=== PATIENT | female | born 1955 | race Caucasian/White ===

== ENCOUNTER 2019-09-21 11:00 | Outpatient (RCR) | payer OTHER, SELFPAY ==
--- NOTE | 2019-08-18 10:44 | PTOPEVAL ---
PHYSICAL THERAPY EVALUATION AND PLAN OF CARE 08-18-2019 The PT evaluation was completed for low back pain. Her plan of treatment is scheduled for 1x/wk for 5 weeks. Thank you for referring Crissy Conroy to [facility]. Please review, sign, date and return this plan of care [facility]. I agree with and certify that the following plan of care is medically necessary. Referring Physician Date Attending Provider: Lela Christian NP *PT Outpatient Evaluation Start: 08/18/19 09:43 Document 08/18/19 09:40 ALEN (Rec: 08/18/19 10:44 ALEN [id number]) Outpatient Past Medical History Past Medical History Source of Past Medical History Patient Neurological History Hx Neurological Disorders No Significant History Cardiovascular History Hx Hypertension Yes: meds Respiratory History Hx Sleep Apnea Yes: dental appliance Gastrointestinal History Hx Gastrointestinal Disorders No Significant History Musculoskeletal History Hx Arthritis Yes: hips Hx Back Injury Yes: after child ,back labor with back pain Hx Other Musculoskeletal Disorders Yes: B knee pain, obesity- recent wt gain 80#/yr Endocrine History Hx Endocrine Disorders No Significant History HEENT History Hx HEENT Disorders No Significant History Evaluation Information Problem Diagnosis lumbago with L sciatica Onset Jan 2019 Subjective Information lifting boxes and twisted back Query Text:As Reported By Patient/ - instant pain; saw Family chiropractor-adjustment and better, then hurt back again; to medical dr and had xrays; pt reports she had lost 80#, then in the past year has regained it all back; previously did aquatic exercises at [facility], not doing due to pandemic Diagnostic Tests X-Rays For This Problem Yes: per pt-minor arthritis back Prior Level of Function Activity Level (Last 3 Months) Occupation retired; Hand Dominance Right Activity of Daily Living Ability Independent Indoor/Home Mobility Independent Community Mobility Independent Stairs Ability Independent Functional Cognition (Planning, Shopping Independent , Taking Medications) Cooking Yes Cleaning Yes Laundry Yes Shopping Yes Driving Yes Home Setting Home Type House Mobi
--- NOTE | 2019-09-21 11:51 | PTOPEVAL ---
PHYSICAL THERAPY DISCHARGE 09-21-2019 Mrs. Conroy has received 6 PT sessions, from August 17 to today for the diagnosis of back pain. She has improved in all areas-trunk and hip strength, increased activity- returned to doing all her usual home activities, supine/sit/stand without pain; Oswestry self assessment score, flexibility of piriformis and has a good understanding of back posture and body mechanics. And is independent with her home exercises. All of the goals were achieved. Therefore, she will be discharged at this time. stephanie you for referring Crissy Conroy to [facility]. Please review, sign, date and return this discharge [facility]. I agree with and certify that the following plan of care is medically necessary. Referring Physician Date Attending Provider: Lela Christian NP *PT Outpatient Discharge Document 09/21/19 11:10 ALEN (Rec: 09/21/19 11:51 ALEN [id number]) Subjective Information Crissy reports: back is better; Query Text:As Reported By Patient/ feeling better, resumed doing Family home cleaning and closet cleaning; am doing weed eater in yard, grocery shopping; am careful with how I move- getting up out of bed is slower and more cautious, does not hurt; does not have any problems with her home exercises and watches her posture; Oswestry self assessment 14% limitation; Pain Assessment Timing of Pain Assessment Timing of Pain Assessment Assessment Pain Scale Pain Scale Used Numeric (1 - 10) Self Report Pain Assessment Bilateral Back Reported Pain Level 0 Pain Frequency Acute Other Pain Description tenderness over R ant illiac crest/ no pain on L side Pain Score Pain Score 0: Self Report Lower Extremity Range of Motion General Lower Extremity Range of Motion Gross Lower Extremity Range of Motion supine: piriformis stretch R Comments same flexibility as L; prone knee flexion stretch R 110'/L 120'; issued HEP for prone knee flexion stretch; Lower Extremity Muscle Strength Testing General Lower Extremity Strength Gross Lower Extremity Strength supine: bridge 20 reps; side lying hip abduction and clamshells R and L with green theraband: 20 reps each - sit to stand and supine to sit, without an increase in pain and good technque -Issued gree
== END 2019-09-22 11:33 | disposition home or self-care (01) ==
LOC: ANHPT 11:00
PROVIDERS: Visit Provider Nurse Practitioner
DX: M54.42 Lumbago with sciatica, left side (principal)
CPT/HCPCS: 97110; 97140; 97161

== ENCOUNTER 2021-11-07 01:09 | Day surgery (SDC) | payer MEDICARE, SELFPAY ==
[2021-10-23 16:05] VITALS: BMI 40.3
--- NOTE | 2021-11-06 10:18 | WPDANESEPPF ---
Anes - Initial Pre Proc Eval Procedure: Operation Date: 11/07/21 08:00 Proposed Procedures p Screening Colonoscopy - Jg Espinal MD Date/Time: 11/06/21 10:18 Surgeon: Jg Espinal MD Pre Op Diagnosis: neoplasm screening Patient Data Age: 66 Gender: F Height: 1.57 m Weight: 100 kg Allergies Allergy/AdvReac Type Severity Reaction Status Date / Time meperidine Allergy Unknown Unknown Verified 11/07/21 06:40 Home Medications Medication Instructions Recorded Confirmed Type aspirin 81 mg tablet,delayed 81 mg PO DAILY 04/14/19 11/07/21 History release calcium carb-Ca gluc 500 mg 1 tablet PO DAILY 04/14/19 11/07/21 History calcium-magnesium ox-Mg gluc 250 mg tablet (Calcium Magnesium) [id number]-Ef-lmad-minerals 1 tablet PO DAILY 04/14/19 11/07/21 History (Multiple Vitamin, Womens tablet) acetaminophen 325 mg capsule 325 mg PO Q6H PRN Pain 10/25/20 11/07/21 History (Tylenol) cholecalciferol (vitamin D3) 50 50 mcg PO DAILY 10/25/20 11/07/21 History mcg (2,000 unit) capsule hydrochlorothiazide 12.5 mg tablet 12.5 mg PO DAILY #90 tabs 04/11/21 11/07/21 Rx losartan 50 mg tablet 50 mg PO DAILY #90 tabs 07/09/21 11/07/21 Rx carvedilol 6.25 mg tablet 6.25 mg PO Q12H #180 tabs 09/20/21 11/07/21 Rx Patient hx anesthesia problems: none Family hx anesthesia problems: none Results Review: All pre-operative results and documents have been reviewed as part of the pre-operative evaluation. [facility] Past Medical History Medical History Breast cancer screening Dyslipidemia Essential (primary) hypertension Sleep apnea Wears dental appliance Vitamin D deficiency Surgical History Surgical History H/O dilation and curettage (~1999) Family History Family History (Updated 10/02/21 @ 09:09 by Monique Rojas) Mother Family history of lung cancer Hypertension Father Heart disease Sibling Asthma Other Family history of arthritis Family history of malignant neoplasm of brain Social History Social History (Updated 10/02/21 @ 09:09 by Monique Rojas) Social History: lives with and has 2 adult children-3 grandchildren. Years smoked: 3 Smoking status: Former smoker Tobacco type: cigarettes Alcohol intake: current Alcohol use details: 1 drink every other month Substance use: never Substance use type: does not use Living arrangements: with family Additional occupation/education comments: Retired from [employer]. Works PT at a [employer]. Gender identity (if verbalized by the patient): Female Sexual Orientation (if Verbalized by the Patient): Straight or Heterosexual Spiritual care concerns: No Agree to blood products: Yes Anes - Eval Final PreProcedure Day of Procedure 11/06/21 10:18 Patient weight: morbidly obese Heart: regular rate and rhythm Lungs: clear to auscultation Airway: Mallampati scale class II Neurological: alert and oriented Last oral intake: >/= 8 hours ASA classification: III Emergent: no Anesthetic plan: proceed Anesthesia type and monitoring: general GIVS and standard monitoring Results Review: All pre-operative results and documents have been reviewed as part of the pre-operative evaluation. Informed Consent: The patient's anesthetic plan and its attendant risks and benefits were discussed with the patient/family/POA. Questions were solicited and answers provided to the satisfaction of the patient/family/POA.
[2021-11-07 06:44] VITALS: BP 146/78; PULSE 64; RESP 18; TEMP 37; O2SAT 98
[2021-11-07] MEDS: LACTATED RINGERS 1,000 ML 150 ML IV CONT (06:47)
--- NOTE | 2021-11-07 07:54 | PM.IMHP ---
H&P: HPI History of Present Illness Date/Time: 11/07/21 07:54 Chief Complaint: Neoplasia screening. Narrative: This is a 66-year-old white female patient presents for screening colonoscopy. Patient's current weight appetite and bowel movements are normal. She denies abdominal pain. Patient has had no bleeding. Family history is noncontributory. Review of Systems Review of Systems: Review of systems noncontributory. [facility] Past Medical History Medical History Breast cancer screening Dyslipidemia Essential (primary) hypertension Sleep apnea Wears dental appliance Vitamin D deficiency Surgical History Surgical History H/O dilation and curettage (~1999) Family History Family History (Updated 10/02/21 @ 09:09 by Monique Rojas) Mother Family history of lung cancer Hypertension Father Heart disease Sibling Asthma Other Family history of arthritis Family history of malignant neoplasm of brain Social History Social History (Updated 10/02/21 @ 09:09 by Monique Rojas) Social History: lives with and has 2 adult children-3 grandchildren. Years smoked: 3 Smoking status: Former smoker Tobacco type: cigarettes Alcohol intake: current Alcohol use details: 1 drink every other month Substance use: never Substance use type: does not use Living arrangements: with family Additional occupation/education comments: Retired from [employer]. Works PT at a [employer] office. Gender identity (if verbalized by the patient): Female Sexual Orientation (if Verbalized by the Patient): Straight or Heterosexual Spiritual care concerns: No Agree to blood products: Yes Meds Home Medications and Allergies Home Medications Medication Instructions Recorded Confirmed Type aspirin 81 mg tablet,delayed 81 mg PO DAILY 04/14/19 11/07/21 History release calcium carb-Ca gluc 500 mg 1 tablet PO DAILY 04/14/19 11/07/21 History calcium-magnesium ox-Mg gluc 250 mg tablet (Calcium Magnesium) dwgwvhqyppmm-Lh-dwbf-minerals 1 tablet PO DAILY 04/14/19 11/07/21 History (Multiple Vitamin, Womens tablet) acetaminophen 325 mg capsule 325 mg PO Q6H PRN Pain 10/25/20 11/07/21 History (Tylenol) cholecalciferol (vitamin D3) 50 50 mcg PO DAILY 10/25/20 11/07/21 History mcg (2,000 unit) capsule hydrochlorothiazide 12.5 mg tablet 12.5 mg PO DAILY #90 tabs 04/11/21 11/07/21 Rx losartan 50 mg tablet 50 mg PO DAILY #90 tabs 07/09/21 11/07/21 Rx carvedilol 6.25 mg tablet 6.25 mg PO Q12H #180 tabs 09/20/21 11/07/21 Rx Allergies Allergy/AdvReac Type Severity Reaction Status Date / Time meperidine Allergy Unknown Unknown Verified 11/07/21 06:40 Vital Signs Vital Signs - 24 hr 11/07/21 06:44 Temperature 98.6 F Pulse Rate 64 Respiratory Rate 18 Blood Pressure 146/78 H Pulse Oximetry 98 Oxygen Delivery Room Air Exam Narrative: Physical exam reveals patient to be alert. Vital signs stable. HEENT exam is unremarkable. Patient is anicteric. Lungs are clear to auscultation and percussion. Heart is without murmur or extra sounds. Abdomen bowel sounds are present soft nontender with no organomegaly. Digital external rectal exam is normal. Assessment and Plan Assessment and plan (1) Encounter for screening for malignant neoplasm of colon: Code(s): Z12.11 - Encounter for screening for malignant neoplasm of colon Status: Acute Assessment and Plan: Patient presents for screening colonoscopy. Appears to be at average risk for colon polyps. Further recommendations will be given after endoscopy.
[2021-11-07 08:27] VITALS: BP 97/48; PULSE 65; RESP 21; O2SAT 97
[2021-11-07 08:37] VITALS: BP 110/61; PULSE 62; RESP 19; O2SAT 98
[2021-11-07 08:47] VITALS: BP 104/65; PULSE 60; RESP 16; O2SAT 95
== END 2021-11-07 09:01 | disposition home or self-care (01) ==
PROVIDERS: PCP Nurse Practitioner Family; Visit Provider Internal Medicine Gastroenterology
PROC: 0DJD8ZZ Inspection of Lower Intestinal Tract, Via Natural or Artificial Opening Endoscopic (ICD-10-PCS; CPT 45378; principal; 2021-11-07 08:00)
DX: Z12.11 Encounter for screening for malignant neoplasm of colon (principal); K64.8 Other hemorrhoids; K57.30 Diverticulosis of large intestine without perforation or abscess without bleeding; E78.5 Hyperlipidemia, unspecified; I10 Essential (primary) hypertension; E55.9 Vitamin D deficiency, unspecified; G47.30 Sleep apnea, unspecified; Z87.891 Personal history of nicotine dependence; Z79.82 Long term (current) use of aspirin; E66.01 Morbid (severe) obesity due to excess calories; Z68.41 Body mass index [BMI] 40.0-44.9, adult
CPT/HCPCS: G0121; J2704; J7120

== ENCOUNTER → 2022-01-25 07:39 | Outpatient (CLI) | payer MEDICARE, SELFPAY ==
--- NOTE | ~2022-01-25 | DEXA_ITS ---
Bone Density Report Name: VON WONG Age: 66 Sex: Female Ethnicity: White Date of : 1955 Indication: postmenopausal; screening for osteoporosis; Referring Provider: Nancy Loco Study: Bone densitometry was performed. Exam Date: January 25, 2022 Accession number: [id number] Bone Density: Region BMD T-score Z-score Classification AP Spine (L1-L4) 1.007 -0.4 1.4 Normal Femoral Neck (Left) 0.852 0.0 1.5 Normal Total Hip (Left) 1.056 0.9 2.2 Normal Femoral Neck (Right) 0.809 -0.4 1.2 Normal Total Hip (Right) 1.007 0.5 1.8 Normal Total Hip Mean 1.032 0.7 2.0 Normal World Health Organization criteria for BMD impression classify patients as: Normal (T-score at or above -1.0), Osteopenia (T-score between -1.0 and -2.5), or Osteoporosis (T-score at or below -2.5). 10-year Fracture Risk: FRAX not reported because: All T-scores for Spine Total, Hip Total, Femoral Neck at or above -1.0 Clinical Information Provided by Patient: Has used the following medications: Vitamin D, Calcium Patient maximum height was 63 Menopause Age: 51 No regular weight bearing exercise Drinks caffeinated beverages Onset of menses at age 10 Number of children 2 Impression: The patient has normal bone mass. Discussion: BONE DENSITY IS ABOVE THE MINIMUM DESIRABLE LEVEL AT ALL SKELETAL SITES TESTED. This patient?s bone mineral density is above the minimum desirable level (T-score -1.0 or better) at all sites measured. The patient should follow a healthful lifestyle (good nutrition with adequate calcium and vitamin D, and appropriate weight-bearing exercise). Follow-Up: Consider repeating this study in 5 years or sooner if there is some new clinical indication. Reported by: [facility] on 01/25/2022 8:02:00 AM. Reviewed, dictated and finalized at location [facility]
--- NOTE | ~2022-01-25 | MM_ITS ---
EXAMINATION: MM screening ambrose BI w galen HISTORY: Screening mammogram TECHNIQUE: Craniocaudal and mediolateral oblique 3-D tomosynthesis images were obtained and synthetic 2-D images were generated. CAD analysis was submitted and interpreted. COMPARISON: No prior mammogram is available for comparison at this institution. BREAST PARENCHYMAL COMPOSITION: There are scattered areas of fibroglandular density. FINDINGS: RIGHT BREAST: There is a possible mass in the subareolar aspect of the breast.. LEFT BREAST: There are possible masses in the anterior third of the lower-outer breast. IMPRESSION: 1. Possible bilateral breast masses. 2. Additional mammographic views and possible breast ultrasound are recommended. BI-RADS Category 0: Incomplete: Needs additional imaging evaluation. Reviewed, dictated and finalized at location A. KO [facility] MAORI IMPRESSION: 1. Possible bilateral breast masses. 2. Additional mammographic views and possible breast ultrasound are recommended . BI-RADS Category 0: Incomplete: Needs additional imaging evaluation.
== END ==
PROVIDERS: PCP Nurse Practitioner Family; Visit Provider Student in an Organized Health Care Education/Training Program
DX: Z12.31 Encounter for screening mammogram for malignant neoplasm of breast (principal); Z13.820 Encounter for screening for osteoporosis; Z78.0 Asymptomatic menopausal state; R92.8 Other abnormal and inconclusive findings on diagnostic imaging of breast
CPT/HCPCS: 77063; 77067; 77080

== ENCOUNTER → 2022-02-18 08:20 | Outpatient (CLI) | payer MEDICARE, SELFPAY ==
--- NOTE | ~2022-02-18 | MMUS_ITS ---
EXAMINATION: MM diagnostic ambrose BI w galen, US breast BI complete HISTORY: Possible right subareolar breast mass and anterior lower outer left breast mass on screening mammogram of 01/25/2022 TECHNIQUE: Additional 3-D tomosynthesis images of both breasts were performed and synthetic 2-D image s were generated. CAD analysis was submitted and interpreted. High resolution complete bilateral janna st ultrasound examination including all 4 quadrants and subareolar areas of each breast was performed . COMPARISON: 01/25/2022 bilateral screening mammogram FINDINGS: MAMMOGRAPHIC FINDINGS: Bilateral occasional small nonspecific nodular areas are noted. No architectural distortion, malignan t calcification, skin thickening or retraction is evident. ULTRASOUND: Right breast: 9:00 subareolar: 2.2 x 5.2 x 3.4 mm circumscribed parallel sonolucency with contiguous blood vessel, most consistent with small lymph node or cyst ; six-month follow-up ultrasound is recommended. Left breast: 1:00 5 cm from nipple: Parallel circumscribed 4.6 x 2.8 x 5.6 mm hypoechoic lesion without internal v ascularity or posterior shadowing, benign in appearance. 9-10:00 5 cm from nipple: Multiple adjacent up to 3.8 x 3.9 and 3 x 2.5 mm circumscribed sonolucent l esions, likely a cluster of small cysts Left breast subareolar area: anti-parallel 3.5 x 4.7 mm irregular hypoechoic lesion with posterior sh adowing; ultrasound-guided biopsy is recommended IMPRESSION: 1. Irregular antiparallel 3.5 x 4.7 mm hypoechoic lesion with posterior shadowing at left breast suba reolar area; ultrasound-guided biopsy is recommended 2. 5.2 mm circumscribed parallel sonolucency with contiguous blood vessel, most consistent with small lymph node or cyst; six-month right breast ultrasound follow-up is recommended Left breast: BI-RADS Category 4: Suspicious abnormality; biopsy should be considered Right breast: BI-RADS Category 3: Probably benign finding; six-month diagnostic mammogram and ultraso und follow-up are recommended Dr. Cardona telephoned the report and left breast ultrasound-guided biopsy recommendation and right janna st 6 month follow-up diagnostic mammogram and ultrasound imaging recommendation on 02/18/2022 [place] [address] Loco. Reviewed, dictated and finalized at location A. NEYMAN PRESSMAN IMPRESSION: 1. Irregular antiparallel 3.5 x 4.7 mm hypoechoic lesion with posterior shadowi ng at left breast subareolar area; ultrasound-guided biopsy is recommended 2. 5.2 mm circumscribed parallel sonolucency with contiguous blood vessel, most consistent with small lymph node or cyst; six-month right breast ultrasound fo llow-up is recommended Left breast: BI-RADS Category 4: Suspicious abnormality; biopsy should be consi dered Right breast: BI-RADS Category 3: Probably benign finding; six-month diagnostic mammogram and ultrasound follow-up are recommended Dr. Cardona telephoned the report and left breast ultrasound-guided biopsy recomme ndation and right breast 6 month follow-up diagnostic mammogram and ultrasound imaging recommendation on 02/18/20[address] Loco.
== END ==
PROVIDERS: PCP Nurse Practitioner Family; Visit Provider Student in an Organized Health Care Education/Training Program
DX: R92.8 Other abnormal and inconclusive findings on diagnostic imaging of breast (principal)
CPT/HCPCS: 76641; 77062; 77066; G0279

== ENCOUNTER 2022-11-20 10:38 | Outpatient (CLI) | payer MEDICARE, SELFPAY ==
[2022-11-20 19:23] LABS: Alanine Aminotransferase 21 U/L (6-35); Albumin Level 4.1 g/dL (3.5-5.1); Alkaline Phosphatase 75 U/L (38-126); Anion Gap 7 mmol/L (8-16); Aspartate Amino Transferase 38 U/L (14-36); Bilirubin,Total 0.4 mg/dL (0.2-1.3); Blood Urea Nitrogen 20 mg/dL (7-17); Calcium 9.5 mg/dL (8.4-10.2); Carbon Dioxide 32 mmol/L (22-30); Chloride 101 mmol/L (98-107); Estimated Glomerular Filt Rate > 60; Glucose 94 mg/dL (65-110); Potassium 4.6 mmol/L (3.4-5.0); Sodium 140 mmol/L (137-145)
[2022-11-20 19:44] LABS: Hemoglobin A1C 5.7 % (<5.7)
== END 2022-11-20 10:39 | disposition home or self-care (01) ==
PROVIDERS: PCP Family Medicine; Visit Provider Family Medicine
DX: R73.03 Prediabetes (principal); I10 Essential (primary) hypertension
CPT/HCPCS: 36415; 80053; 83036

== ENCOUNTER 2022-12-22 09:51 | Outpatient (CLI) | payer MEDICARE, SELFPAY ==
[2022-12-22 13:11] LABS: Uric Acid 8.2 mg/dL (2.5-7.5)
== END 2022-12-22 09:52 | disposition home or self-care (01) ==
LOC: ANHGOSHLAB 09:53
PROVIDERS: PCP Family Medicine; Visit Provider Nurse Practitioner Family
DX: M10.9 Gout, unspecified (principal)
CPT/HCPCS: 36415; 84550